=== PATIENT | male | born 1970 | race Caucasian/White ===

== ENCOUNTER 2017-05-21 21:33 | Emergency (ER) | payer MEDICARE, OTHER ==
[~2017-05-21] VITALS: Ht 193 cm; Wt 127.3 kg
[~2017-05-21 21:33] MED LIST: OXYC-176 PO
[2017-05-21 21:45] VITALS: BP 180/79; PULSE 72; RESP 12; O2SAT 97
--- NOTE | 2017-05-21 22:35 | ED.REPORT ---
HPI-Rash / Abscess Date of Service May 21, 2017 ED Provider: Mendel Briggs MD The pt is a 47 y/o male w/ a hx of kidney stones and IV heroin use presenting to the ED complaining of a cyst onset 3 days ago. The cyst is localized to the L side of his scrotum. He describes it as only causing him moderate discomfort, beginning small, and releasing a brown fluid last night when he pushed on it. Denies fever, chills, nausea, vomiting, or dysuria. The pt has not been on antibiotics recently and last used heroin at 1100 this morning. Nursing Notes Stated Complaint: LARGE CYST ON INSIDE OF LT LEG Chief Complaint: LARGE CYST ON INSIDE OF LT LEG Nursing Notes Reviewed: Yes (Yours Florally, [employer] not reconciled) Allergies: Coded Allergies: Sulfa (Sulfonamide Antibiotics) (Verified Allergy, Intermediate, Rash, Itching,, 05/21/17) morphine (Verified Adverse Reaction, Severe, combative, 05/21/17) codeine (Verified Adverse Reaction, Intermediate, Nausea,Vomiting,Diarrhea , 05/21/17) Scheduled PRN Oxycodone/APAP-Expunged Drug, Do Not Renew! (Percocet 5/325-Expunged Drug, Do Not Renew!) 1 Each Tablet 1 TAB PO PRN General Time Seen by MD: 22:33 Chief Complaint Other (Cyst on L side of scrotum ) Hx Obtained From: Patient Arrived By: Walk-in Onset Occurred: 3 days ago Symptom Duration: Since onset Recent Healthcare: No recent doctor visit, No recent hospitalization Similar Sx Previous: No Past Medical History Past Medical History IVDA - heroin History of kidney stones Reports: Heroin use Past Surgical History Back surgery Cholecystectomy History of ureteral stent and lithotripsy History of throat biopsy Smoking History Current Every Day Smoker Social History Alcohol Use: "Social" Drug Use: IV drugs (heroin, last used this AM) Review of Systems Cyst localized to L side of scrotum Constitutional: Denies: Chills, Fever GI: Denies: Nausea, Vomiting Complete sys rev & neg: except as marked. Male: Denies Dysuria Physical Exam Initial Vital Signs Vital Signs (First) Date Time Temp Pulse Resp B/P Pulse Ox O2 Delivery O2 Flow Rate FiO2 05/21/17 21:45 36.9 72 12 180/79 97 Room Air Initial VS: Reviewed, Vital signs abnormal (HTN) Head / Eyes: Atraumatic, Normocephalic, PERRL ENT: Mucous membranes moist, Conjunctiva normal, No scleral icterus Neck: Supple, Non-tender, Full range of motion Respiratory: Breath sounds normal, Clear to auscultation, No respiratory distress Cardiovascular: Regular rate & rhythm, Heart sounds normal, Intact distal pulses Extremities: Vascular intact, Neuro intact, No swelling, No tenderness Neurologic: Alert, Oriented, Nonfocal Psychiatric: Mood/affect normal, Behavior normal, Normal thought content General/Constitutional: Awake, Alert, Not toxic appearing Skin: Color NL, Warm, Dry Track correia on arm Male Genitourinary: Penis NL, Testes NL Abscess around base of L scrotum into perineum Difficult to tell if it goes to betty-rectal space or scrotum Some cellulitis No crepitus Interpretation & Diagnostics US SCROTUM Conclusion: Complex hypoechoic lesion in the L groin measuring 2.8 x 4.4 x 1.8 cm dimension w/ perilesional hyperemia likely enlarged lymph node, inflammatory , infectious, or neoplastic. Other lesion not excluded on the basis of the examination. Surrounding soft tissues echogenic and edematous. Scrotal wall edema. Epidiymides not well seen. The report was transmitted to the emergency room at 05/22/17 2:10:42 AM PDT. Procedures Incision & Drainage Abscess Time: 05:55 Procedure Performed by: ED physician Consent / Setup / Site Prep: Informed consent provided, Consent from patient , Time-out performed, Hand hygiene observed, Stand sterile technique, Sterile drapes applied Location of Abscess: L scrotum Skin Preparation Agent: Hibiclens - Chlorhexidine Local Anesthesia: Bupivacaine 0.5% (w/ epi ) Procedural Sedation/Analgesia: Analgesia: Other (Sub-dissociative ketamine ) Incised Abscess with Scalpel: #11 Pus Drained: Large (5 cc) Irrigation: Yes Post-Procedure / Complications: Packing placed, Dressing applied, No complications, Condition improved, Tolerated procedure well, Patient stable Re-Eval/Medical Decision Med Decision/Clinical Course This is a 47-year-old male history of IVDA presents complaining of possible abscess below the scrotum and around the perineum. His had one previous abscess several years ago drained. He denies previous history of MRSA. Denies any rashes or lesions. On exam he has a probable abscess just posterior to the scrotum on the left side , there is some induration. There is some mild external cellulitis. I do not appreciate brenton perirectal abscess. But it is difficult to clinically determine if the abscess extends into the scrotum, so ultrasound was obtained. Be a superficial abscess without scrotal extension. The patient's nontoxic. He has no venous access is history of IV drug abuse. He received sub-disassociative dose of ketamine for analgesia with good effect, and then local anesthesia visit given epinephrine, was able to incise and drain the abscess with a sizable amount of pus removed. Procedure was well-tolerated and no cough medications. Patient received IM clindamycin, and is being discharged on continued clindamycin with follow-up. Routine return precautions reviewed. Patient's discharged vastly improved condition. A wound culture has been sent. Source of Hx: Old records Re-Evaluation/Progress #1: Time of Eval: 00:55 Re-Evaluation/Progress Note: Performed I+D of abscess Re-Evaluation/Progress #2: Time of Eval: 01:29 Re-Evaluation/Progress Note: Pt rechecked. Informed pt of plan for treatment. Pt understands and agrees with plan for treatment. F/U instructions and RTER warnings given. All questions addressed. Differential Diagnosis: Positive: Abscess, Cellulitis, Skin abscess, Negative: Bartholin's abscess, Candidiasis, Erythema multiforme, Gangrene, Henoch-Schonlein purpura, Osteomyelitis, Pediculosis (lice), Scarlet fever, Shingles, herpes zoster Counseled Regarding: Diagnosis, Lab results, Need for follow-up, When/why to return to ED Discharge & Departure Impression: Primary Impression: Abscess Disposition: Home Discharge Condition All VS Reviewed: Yes Condition: Stable Additional Instructions: 1. You had a perineal abscess drained today. 2. Continue the antibiotic clindamyin 300mg four times a day for the next 10 days (next dose at breakfast time) 3. Symptoms should be improving rapidly over the next several days. 4. Return again if new or worsening symptoms occur. Referrals: Barron Mraroquin MD (PCP) Scribe Attestation Portions of this note were transcribed by Mohsen Garcia. I, Dr. Briggs personally performed the history, physical exam and medical decision-making; I reviewed and confirmed the accuracy of the information in the transcribed note. copies to: Barron Marroquin MD, Matthew F MD May 21, 2017 22:35 Mohsen Garcia May 21, 2017 23:49
[2017-05-21] MEDS ORDERED: Clindamycin 150 mg/mL 2 mL Inj IM ONE (22:40)
[2017-05-22] MEDS ORDERED: Ketamine 100 mg/mL 5 mL Inj IM ONE (00:15)
[2017-05-22 01:43] VITALS: BP 116/74; PULSE 88; RESP 18; O2SAT 97
[2017-05-22] MEDS ORDERED: _Clindamycin 150 mg Capsule PO SCH (06:30)
--- NOTE | 2017-05-22 08:29 | DRSVH ---
PROCEDURE: US EXTREMITY SONOGRAM LIMITED (51990) INDICATIONS: ? abscess/ lump and redness lft groing TECHNIQUE: Real-time scanning was performed of the left groin, with image documentation. COMPARISON: None. FINDINGS: Complex, hypoechoic soft tissue mass is present within the left groin corresponding to the palpable abnormality measuring 5.6 x 3.2 x 2.7 cm. Peripheral vascularity noted. Testicles appear grossly normal but are not completely imaged. There is scrotal thickening with the wall measuring roughly 7.4 mm. IMPRESSION: 1. Complex, hypoechoic soft tissue mass present within the left groin with peripheral hyperemia. Fin dings are nonspecific but could relate to underlying infection but neoplastic process cannot be exclu ded. Recommend clinical correlation and followup. 2. Grossly normal appearance of the testicles which are incompletely imaged and there is mild scrotal wall thickening. Note: These findings are concordant with the preliminary interpretation. Dictated by: Charles SCHNEIDER Interpreted: Wilner Kamara MD on 05/22/2017 at 8:23 Transcribed by: ASHLEY on 05/22/2017 at 8:29 Approved by: Wilner Kamara M.D. on 05/22/2017 at 14:24
== END 2017-05-22 01:46 | disposition home or self-care (01) ==
LOC: SED 21:33
DX: L02.215 Cutaneous abscess of perineum (principal); F17.200 Nicotine dependence, unspecified, uncomplicated; F11.10 Opioid abuse, uncomplicated; Z96.0 Presence of urogenital implants; Z87.442 Personal history of urinary calculi; Z88.5 Allergy status to narcotic agent; Z88.2 Allergy status to sulfonamides
CPT/HCPCS: 55100; 76882; 87070; 87075; 87205; 96372; 99285; J3490